=== PATIENT | female | born 1980 | race African-American/Black ===

== ENCOUNTER 2017-05-29 21:31 | Emergency (ER) | payer BC ==
[2017-05-29 21:46] VITALS: BP 124/88; BMI 41.7
[2017-05-29 22:44] LABS: BILIRUBIN,URINE NEGATIVE (NEGATIVE); BLOOD/HEMOGLOBIN,URINE NEGATIVE (NEGATIVE); GLUCOSE, URINE NEGATIVE (NEGATIVE); KETONES,URINE NEGATIVE (NEGATIVE); LEUKOCYTE ESTERASE ,URINE NEGATIVE (NEGATIVE); NITRITES,URINE NEGATIVE (NEGATIVE); PROTEIN,URINE 1+ (NEGATIVE); UROBILINOGEN,URINE NORMAL (NORMAL)
[2017-05-29 23:00] LABS: APPEARANCE,URINE CLEAR (CLEAR); BACTERIA,URINE TRACE /HPF (NEGATIVE); COLOR,URINE YELLOW (YELLOW); RBC,URINE 0-2 /HPF (NEGATIVE); SQUAMOUS EPITHELIAL CELL,UR FEW /HPF (NEGATIVE)
[2017-05-29 23:01] LABS: AMORPHOUS SEDIMENT,UR TRACE /HPF (NEGATIVE); MUCUS,URINE MANY /HPF (NEGATIVE)
--- NOTE | 2017-05-29 23:08 | DR.GENAD ---
HPI - PCP Primary Care Physician: ESTELA SANCHEZ - Complaint/Symptoms Chief Complaint Doctors Comments: Patient has been worked up at [facility] for acute right flank pain. w/u negative. She presents with same compliant. Chief Complaint:: RIGHT SIDED LOWER BACK PAIN - Source History Provided: Patient - Mode of Arrival Mode of Arrival: Wheelchair - Timing Onset of Chief Complaint: 05/28/17 PMH - PMH Past Medical History: Yes Past Medical History: GERD, Hypertension Past Medical History Comment: HYPOGLYCEMIC Past Surgical History: Yes Surgical History: Hysterectomy, Ortho Surgery Past Surgical History Comment: HERNIA REPAIR - Family History History of Family Medical Conditions: Yes Family Medical History: Diabetes Mellitus, Hypertension - Social History Does patient currently use any type of tobacco product: No Have you used tobacco products in the last 12 months: No Type of Tobacco Use: None Does any household member use tobacco: No Alcohol Use: None Do you use any recreational Drugs:: No Lives With: Spouse Lives Where: Home - infectious screening In the last 2 months have you had wt loss of >10#?: NO Have you had fever, night sweats or hemotysis?: No Have you traveled outside the country in the last 6 months?: No Isolation: Standard ROS - Review of Systems Eyes: No Symptoms Reported ENTM: No Symptoms Reported Respiratoy: No Symptoms Reported Cardiovascular: No Symptoms Reported Gastrointestinal/Abdominal: No Symptoms Reported Genitourinary: No Symptoms Reported Neurological: No Symptoms Reported Musculoskeletal: Other (right flank pain) Integumentary: No Symptoms Reported Hematologic/Lymphatic: No Symptoms Reported Endocrine: No Symptoms Reported Psychiatric: No Symptoms Reported All Other Systems: Reviewed and Negative PE - Vital Signs Vitals: Temperature 97.5 F Pulse Rate 93 Respiratory Rate 16 Blood Pressure 124/88 O2 Sat by Pulse Oximetry 100 - General General Appearance: Alert, In Distress - Head Head Exam: Normal Inspection, Atraumatic - Eyes Eye exam: Normal Appearance, PERRL, EOMI - ENT ENT Exam: Normal Exam External Ear Exam: Normal External Inspection TM/Canal Exam: Bilateral Normal Nose Exam: Normal Nose Exam Mouth Exam: Normal Inspection Throat Exam: Normal Inspection - Neck Neck Exam: Normal Inspection, Full ROM - Chest Chest Inspection: Normal Inspection - Respiratory Respiratory Exam: Normal Lung Sounds Bilat Respiratory Exam: Bilateral Clear to Auscultation - Cardiovascular Cardiovascular Exam: Regular Rate - Abdominal Exam Abdominal Exam: Normal Inspection Abdominal Tenderness: RUQ, RLQ - Extremities Extremities Exam: Normal Inspection - Back Back Exam: Normal Inspection - Neurologic Neurological Exam: Alert, Oriented X3, CN II-XII Intact - Psychiatric Psychiatric Exam: Normal Affect - Skin Skin Exam: Warm, Dry MDM - Additional Information Additional Information Obtained From: Old Records (Abdo CT negative, cmp,ua negative) Course - Reevaluation 1st: Improved ROR - Labs Reviewed Laboratory Results Reviewed?: Yes (H pylori positive) Result Diagrams: 05/30/17 00:05 05/30/17 00:05 Laboratory: WBC 7.9 X10^3/uL (3.6-10.0) 05/30/17 00:05 RBC 4.85 X10^6/uL (3.5-5.4) 05/30/17 00:05 Hgb 12.8 g/dL (12.0-16.0) 05/30/17 00:05 Hct 38.3 % (36.0-47.0) 05/30/17 00:05 MCV 79.0 fL (80.0-100.0) L 05/30/17 00:05 MCH 26.4 pg (27.0-34.0) L 05/30/17 00:05 MCHC 33.4 g/dL (33.0-35.0) 05/30/17 00:05 RDW 13.5 % (11.6-16.5) 05/30/17 00:05 Plt Count 279 X10^3/uL (150.0-450.0) 05/30/17 00:05 MPV 7.0 fL (7.4-11.0) L 05/30/17 00:05 Neut % 52.9 % (42.0-75.0) 05/30/17 00:05 Lymph % 40.3 % (21.0-51.0) 05/30/17 00:05 [place] % 4.6 % (0.0-13.0) 05/30/17 00:05 Eos % 1.7 % (0.9-2.9) 05/30/17 00:05 Baso % 0.5 % (0.2-1.0) 05/30/17 00:05 Neut # 4.2 x10^3/uL (2.2-4.8) 05/30/17 00:05 Lymph # 3.2 X10^3/uL (1.3-2.9) H 05/30/17 00:05 [place] # 0.4 x10^3/uL (0.3-0.8) 05/30/17 00:05 Eos # 0.1 x10^3/uL (0.0-0.2) 05/30/17 00:05 Baso # 0.0 X10^3/uL (0.0-0.1) 05/30/17 00:05 Absolute Nucleated RBC 0.0 /100WBC 05/30/17 00:05 Sodium 143 mmol/L (136-145) 05/30/17 00:05 Corrected Sodium TNP 05/30/17 00:05 Potassium 3.6 mmol/L (3.5-5.1) 05/30/17 00:05 Chloride 107 mmol/L (98-107) 05/30/17 00:05 Carbon Dioxide 29.0 mmol/L (21-32) 05/30/17 00:05 BUN 17 mg/dL (7-18) 05/30/17 00:05 Creatinine 0.90 mg/dL (0.55-1.02) 05/30/17 00:05 Est GFR (MDRD) Af Amer > 60 (>60) 05/30/17 00:05 Est GFR (MDRD) Non-Af > 60 (>60) 05/30/17 00:05 Glucose 101 mg/dL (65-99) H 05/30/17 00:05 Calcium 8.6 mg/dL (8.5-10.1) 05/30/17 00:05 Corrected Calcium 9.2 mg/dL (8.5-10.1) 05/30/17 00:05 Total Bilirubin 0.20 mg/dL (0.2-1.0) 05/30/17 00:05 AST 15 Units/L (15-37) 05/30/17 00:05 ALT 22 Units/L (12-78) 05/30/17 00:05 Alkaline Phosphatase 107 Units/L (46-116) 05/30/17 00:05 C-Reactive Protein 20.20 mg/L (0-3.0) H 05/30/17 00:05 Total Protein 7.8 g/dL (6.4-8.2) 05/30/17 00:05 Albumin 3.3 g/dL (3.4-5.0) L 05/30/17 00:05 Globulin 4.5 g/dL (2.5-4.5) 05/30/17 00:05 Albumin/Globulin Ratio 0.7 Ratio (1.1-2.1) L 05/30/17 00:05 Amylase 57 Units/L (25-115) 05/30/17 00:05 Lipase 95 Units/L (73-393) 05/30/17 00:05 Specimen Type Clean catch urine 05/29/17 22:34 Urine Color Yellow (YELLOW) 05/29/17 22:34 Urine Appearance Clear (CLEAR) 05/29/17 22:34 Urine pH 6.0 (5.0 - 8.0) 05/29/17 22:34 Ur Specific [place] 1.025 (1.000-1.030) 05/29/17 22:34 Urine Protein 1+ (NEGATIVE) 05/29/17 22:34 Urine Glucose (UA) Negative (NEGATIVE) 05/29/17 22:34 Urine Ketones Negative (NEGATIVE) 05/29/17 22:34 Urine Occult Blood Negative (NEGATIVE) 05/29/17 22:34 Urine Nitrite Negative (NEGATIVE) 05/29/17 22:34 Urine Bilirubin Negative (NEGATIVE) 05/29/17 22:34 Urine Urobilinogen Normal (NORMAL) 05/29/17 22:34 Ur Leukocyte Esterase Negative (NEGATIVE) 05/29/17 22:34 Urine RBC 0-2 /HPF (NEGATIVE) 05/29/17 22:34 Urine WBC 0-1 /HPF (NEGATIVE) 05/29/17 22:34 Ur Squamous Epith Cells Few /HPF (NEGATIVE) 05/29/17 22:34 Amorphous Sediment Trace /HPF (NEGATIVE) 05/29/17 22:34 Urine Bacteria Trace /HPF (NEGATIVE) 05/29/17 22:34 Urine Mucus Many /HPF (NEGATIVE) 05/29/17 22:34 Ur Culture Indicated? No/not indicated 05/29/17 22:34 H. pylori IgG Antibody Positive (NEGATIVE) A 05/30/17 00:05 - Diagnosis Discharge Problem: Helicobacter pylori (H. pylori) - Discharge Plan Condition: Stable - Follow ups/Referrals Follow ups/Referrals: NFD,None [Primary Care Provider] - 3 days - Instructions
[2017-05-29] MEDS ORDERED: DILAUDID INJ IVP ONE (23:12)
[2017-05-29] MEDS ORDERED: DILAUDID INJ ONE (23:16)
[2017-05-30 00:37] LABS: BASOPHILS % (AUTO) 0.5 % (0.2-1.0); EOSINOPHILS # (AUTO) 0.1 x10^3/uL (0.0-0.2); EOSINOPHILS % (AUTO) 1.7 % (0.9-2.9); HEMATOCRIT 38.3 % (36.0-47.0); HEMOGLOBIN 12.8 g/dL (12.0-16.0); LYMPHOCYTES # (AUTO) 3.2 X10^3/uL (1.3-2.9); LYMPHOCYTES % (AUTO) 40.3 % (21.0-51.0); MEAN CORPUSCULAR HEMOGLOBIN 26.4 pg (27.0-34.0); MEAN CORPUSCULAR HGB CONC 33.4 g/dL (33.0-35.0); MONOCYTES # (AUTO) 0.4 x10^3/uL (0.3-0.8); MONOCYTES % (AUTO) 4.6 % (0.0-13.0); NEUTROPHILS # (AUTO) 4.2 x10^3/uL (2.2-4.8); NEUTROPHILS % (AUTO) 52.9 % (42.0-75.0); PLATELET COUNT 279 X10^3/uL (150.0-450.0); RED BLOOD COUNT 4.85 X10^6/uL (3.5-5.4); RED CELL DISTRIBUTION WIDTH 13.5 % (11.6-16.5); WHITE BLOOD COUNT 7.9 X10^3/uL (3.6-10.0)
[2017-05-30 00:50] LABS: ALANINE AMINOTRANSFERASE 22 Units/L (12-78); ALBUMIN 3.3 g/dL (3.4-5.0); ALKALINE PHOSPHATASE 107 Units/L (46-116); AMYLASE 57 Units/L (25-115); ASPARTATE AMINO TRANSFERASE 15 Units/L (15-37); BLOOD UREA NITROGEN 17 mg/dL (7-18); CALCIUM 8.6 mg/dL (8.5-10.1); CHLORIDE 107 mmol/L (98-107); COR CA(FOR HYPOALB) 9.2 mg/dL (8.5-10.1); GLUCOSE 101 mg/dL (65-99); LIPASE 95 Units/L (73-393); SODIUM 143 mmol/L (136-145); TOTAL PROTEIN 7.8 g/dL (6.4-8.2); eGFR BLACK RACES > 60 (>60); eGFR NON BLACK RACES > 60 (>60)
[2017-05-30] MEDS ORDERED: BIAXIN TAB 500 MG PO ONE ×2 (01:11→01:23)
[2017-05-30] MEDS ORDERED: PREVACID PO ONE (01:11)
[2017-05-30] MEDS ORDERED: FLAGYL TAB 500 MG PO ONE (01:14)
[2017-05-30] MEDS ORDERED: PEPCID TAB 20 MG ONE (01:23)
[2017-05-30] MEDS ORDERED: FLAGYL TAB 250 MG PO ONE (01:23)
[2017-05-30] MEDS ORDERED: PEPCID TAB 20 MG PO ONE (01:26)
== END 2017-05-30 01:30 | disposition home or self-care (01) ==
LOC: ER 21:54
DX: M54.5 Low back pain (principal); B96.81 Helicobacter pylori [H. pylori] as the cause of diseases classified elsewhere
CPT/HCPCS: 36415; 80053; 81001; 82150; 83690; 85025; 86140; 86677; 96365; 96374; 99283; A4222

== ENCOUNTER → 2017-11-17 | Outpatient (CLI) | payer BC ==
[2017-11-17 14:02] LABS: BASOPHILS # (AUTO) 0.1 X10^3/uL (0.0-0.1); BASOPHILS % (AUTO) 0.9 % (0.2-1.0); EOSINOPHILS # (AUTO) 0.1 x10^3/uL (0.0-0.2); EOSINOPHILS % (AUTO) 1.5 % (0.9-2.9); HEMATOCRIT 36.4 % (36.0-47.0); HEMOGLOBIN 12.1 g/dL (12.0-16.0); LYMPHOCYTES % (AUTO) 42.5 % (21.0-51.0); MEAN CORPUSCULAR HEMOGLOBIN 25.9 pg (27.0-34.0); MEAN CORPUSCULAR HGB CONC 33.4 g/dL (33.0-35.0); MEAN CORPUSCULAR VOLUME 77.6 fL (80.0-100.0); MEAN PLATELET VOLUME 7.1 fL (7.4-11.0); MONOCYTES # (AUTO) 0.3 x10^3/uL (0.3-0.8); MONOCYTES % (AUTO) 4.5 % (0.0-13.0); NEUTROPHILS # (AUTO) 3.6 x10^3/uL (2.2-4.8); NEUTROPHILS % (AUTO) 50.6 % (42.0-75.0); PLATELET COUNT 315 X10^3/uL (150.0-450.0); RED BLOOD COUNT 4.69 X10^6/uL (3.5-5.4); RED CELL DISTRIBUTION WIDTH 13.8 % (11.6-16.5)
[2017-11-17 14:12] LABS: ALANINE AMINOTRANSFERASE 23 Units/L (12-78); ALBUMIN 3.3 g/dL (3.4-5.0); ALKALINE PHOSPHATASE 101 Units/L (46-116); ASPARTATE AMINO TRANSFERASE 14 Units/L (15-37); BLOOD UREA NITROGEN 14 mg/dL (7-18); CALCIUM 8.9 mg/dL (8.5-10.1); CARBON DIOXIDE 26.7 mmol/L (21-32); CHLORIDE 106 mmol/L (98-107); CHOL/HDL RATIO 1.9 (0.0-5.0); CHOLESTEROL 149 mg/dL (0-200); COR CA(FOR HYPOALB) 9.5 mg/dL (8.5-10.1); CREATININE 0.79 mg/dL (0.55-1.02); HDL CHOLESTEROL 77 mg/dL (40-60); SODIUM 141 mmol/L (136-145); TOTAL PROTEIN 7.7 g/dL (6.4-8.2); TRIGLYCERIDES 37 mg/dL (0-150); TSH (3RD GENERATION) 1.169 uIU/mL (0.358-3.74); eGFR BLACK RACES > 60 (>60); eGFR NON BLACK RACES > 60 (>60)
[2017-11-17 14:21] LABS: ANISOCYTOSIS SLIGHT; PLATELET MORPHOLOGY COMMENT NORMAL (NORMAL)
== END ==
LOC: LAB 13:39
PROVIDERS: ATTEND Emergency Medicine
DX: E88.81 Metabolic syndrome and other insulin resistance (principal); F32.89 Other specified depressive episodes; F41.1 Generalized anxiety disorder; I10 Essential (primary) hypertension
CPT/HCPCS: 36415; 80053; 80061; 83525; 84443; 85025